=== PATIENT | male | born 1980 | race Hispanic/Latino ===

== ENCOUNTER 2021-07-30 16:36 | Emergency (ER) | payer SELFPAY ==
[2021-07-30] MEDS ORDERED: Ketorolac Tromethamine 30 MG/ML VIAL ONE (17:38)
[2021-07-30] MEDS ORDERED: Boostrix 0.5 ML (Tdap) VIAL ONE (17:38)
[2021-07-30] MEDS ORDERED: Lidocaine 1% (PF) 30 ML VIAL ONE (17:39)
[2021-07-30] MEDS ORDERED: Triple Antibiotic Oint 1 GM Packet ONE (18:37)
== END 2021-07-30 18:39 | disposition home or self-care (01) ==
LOC: CSHERS 16:36
DX: S61.211A Laceration without foreign body of left index finger without damage to nail, initial encounter (principal); S61.213A Laceration without foreign body of left middle finger without damage to nail, initial encounter; Z23 Encounter for immunization; M10.9 Gout, unspecified; W29.8XXA Contact with other powered hand tools and household machinery, initial encounter
CPT/HCPCS: 12002; 90471; 90715; J1885; J2001